=== PATIENT | female | born 1995 | race Caucasian/White ===

== ENCOUNTER 2023-03-26 05:52 | Inpatient (IN) | payer BC ==
[2023-03-26] MEDS ORDERED: Citric Acid/Sodium Citrate Solution 30 ML Cup PO ONE (06:12)
[2023-03-26] MEDS ORDERED: Sodium Chloride 0.9% 2.5 ML Syringe FLUSH PRN (06:12)
[2023-03-26] MEDS ORDERED: Sodium Chloride 0.9% 20 ML SDV IV PRN (06:12)
[2023-03-26] MEDS ORDERED: Sodium Chloride 0.9% 10 ML Syringe FLUSH PRN (06:12)
[2023-03-26] MEDS ORDERED: Oxytocin/0.9 % Sodium Chloride 30 UNIT/500 ML BAG IV SCH (06:15)
[2023-03-26] MEDS ORDERED: Lactated Ringers 1,000 ML IV SCH ×2 (06:15→08:15)
[2023-03-26] MEDS ORDERED: Dexmedetomidine 200 MCG/2 ML SDV ONE (07:06)
[2023-03-26] MEDS ORDERED: Ondansetron 4 MG/2 ML SDV ONE (07:06)
[2023-03-26 07:07] LABS: HEMOGLOBIN 10.6 g/dL (12.0-16.0); MEAN CORPUSCULAR HEMOGLOBIN 28.6 pg (27.0-32.0); MEAN CORPUSCULAR HGB CONC 32.1 g/dL (31.0-37.0); MEAN CORPUSCULAR VOLUME 89.2 fL (80.0-98.0); MEAN PLATELET VOLUME 12.8 fL (7.40-12.00); RED BLOOD CELL COUNT 3.7 M/uL (4.30-5.90); WHITE BLOOD CELL COUNT,WBC 11.75 K/uL (4.0-11.0)
[2023-03-26] MEDS ORDERED: Morphine PF 10 MG/10 ML SDV ONE (07:07)
[2023-03-26] MEDS ORDERED: Lanolin 100% Cream 7 GM Tube TOP PRN (08:09)
[2023-03-26] MEDS ORDERED: diphenhydrAMINE 50 MG/ML SDV IVPUSH PRN ×2 (08:09→09:48)
[2023-03-26] MEDS ORDERED: Tranexamic Acid 1,000 MG in Sodium Chloride 0.9% 100 ML IV PRN (08:09)
[2023-03-26] MEDS ORDERED: Bisacodyl 10 MG Supp RECTAL PRN (08:09)
[2023-03-26] MEDS ORDERED: Ondansetron 4 MG/2 ML SDV IVPUSH PRN ×2 (08:09→09:48)
[2023-03-26] MEDS ORDERED: Misoprostol 200 MCG Tab RECTAL PRN (08:09)
[2023-03-26] MEDS ORDERED: Methylergonovine 0.2 MG/1 ML Amp IM PRN (08:09)
[2023-03-26] MEDS ORDERED: Oxytocin 10 Units/1 ML SDV IM PRN (08:09)
[2023-03-26] MEDS ORDERED: Ketorolac 30 MG/ML SDV IVPUSH SCH (08:15)
[2023-03-26] MEDS ORDERED: ceFAZolin 2 GM Vial ONE (08:16)
[2023-03-26] MEDS ORDERED: ceFAZolin 1 GM Vial ONE (08:16)
[2023-03-26] MEDS ORDERED: Water For Injection, Sterile 20 ML ONE (08:22)
[2023-03-26] MEDS ORDERED: Oxytocin 10 Units/1 ML SDV ONE (08:32)
[2023-03-26] MEDS ORDERED: Phenylephrine HCl 0.5 MG/5 ML AMP ONE (08:36)
[2023-03-26] MEDS ORDERED: Phenylephrine 1% 10 MG/ML SDV ONE (08:36)
[2023-03-26] MEDS ORDERED: Ropivacaine 0.5% 5 MG/ML 30 ML SDV ONE (08:46)
[2023-03-26] MEDS ORDERED: Ketorolac 30 MG/ML SDV ONE (08:59)
[2023-03-26] MEDS ORDERED: ePHEDrine 50 MG/ML SDV IVPUSH PRN (09:48)
[2023-03-26] MEDS ORDERED: fentaNYL 50 MCG/ML SDV IVPUSH PRN (09:48)
[2023-03-26] MEDS ORDERED: Acetaminophen 500 MG Tab PO PRN (15:00)
[2023-03-26] MEDS: Ketorolac 30 MG/ML SDV IVPUSH SCH ×2 (15:18→21:14)
[2023-03-26] MEDS: Docusate Sodium 100 MG Cap PO SCH ×2 (21:00→21:14)
[2023-03-27] MEDS: Ketorolac 30 MG/ML SDV IVPUSH SCH ×2 (03:01→10:36)
[2023-03-27 06:25] LABS: HEMATOCRIT 29.4 % (36.0-46.0); HEMOGLOBIN 9.8 g/dL (12.0-16.0)
[2023-03-27] MEDS: Docusate Sodium 100 MG Cap PO SCH ×2 (10:40→20:00)
[2023-03-27] MEDS: Acetaminophen/oxyCODONE 325-5 MG Tab PO PRN ×3 (10:44→19:43)
[2023-03-27] MEDS: Ibuprofen 800 MG Tab PO PRN (17:25)
[2023-03-27] MEDS ORDERED: Simethicone 80 MG Tab.Chew PO PRN (18:06)
[2023-03-28] MEDS: Acetaminophen/oxyCODONE 325-5 MG Tab PO PRN ×6 (01:23→20:51)
[2023-03-28] MEDS: Ibuprofen 800 MG Tab PO PRN ×2 (01:25→20:52)
[2023-03-28] MEDS: Docusate Sodium 100 MG Cap PO SCH ×2 (09:43→20:52)
[2023-03-29] MEDS: Acetaminophen/oxyCODONE 325-5 MG Tab PO PRN ×3 (01:33→11:02)
[2023-03-29] MEDS: Ibuprofen 800 MG Tab PO PRN (06:21)
[2023-03-29] MEDS: Docusate Sodium 100 MG Cap PO SCH (09:00)
== END 2023-03-29 13:35 | disposition home or self-care (01) | DRG 540 ==
LOC: MW.OB 05:52
PROVIDERS: ADMIT Obstetrics & Gynecology; ATTEND Obstetrics & Gynecology Obstetrics
PROC: 10D00Z1 Extraction of Products of Conception, Low, Open Approach (ICD-10-PCS; principal; 2023-03-26)
PROC: 3E0234Z Introduction of Serum, Toxoid and Vaccine into Muscle, Percutaneous Approach (ICD-10-PCS; 2023-03-27)
DX: O34.211 Maternal care for low transverse scar from previous cesarean delivery (principal); O30.003 Twin pregnancy, unspecified number of placenta and unspecified number of amniotic sacs, third trimester; Z3A.37 37 weeks gestation of pregnancy; Z37.2 Twins, both liveborn; O99.214 Obesity complicating childbirth; O99.334 Smoking (tobacco) complicating childbirth; F17.210 Nicotine dependence, cigarettes, uncomplicated; O26.893 Other specified pregnancy related conditions, third trimester; Z67.11 Type A blood, Rh negative
CPT/HCPCS: 01961; 36415; 64488; 85014; 85018; 85027; 85460; 86592; 86850; 86900; 86901; A9270-GY; J0131; J0690; J1200; J1885; J2274; J2370; J2405; J2590; J2790; J2795; J3490; J7120